=== PATIENT | female | born 1950 | race Caucasian/White ===

== ENCOUNTER 2018-12-24 08:11 | Emergency (ER) | payer BC, MEDICARE ==
[~2018-12-24] VITALS: Ht 165.1 cm; Wt 122.5 kg
--- NOTE | 2018-12-24 08:15 | NUR ---
L EYE/FOREHEAD RASH SINCE TUESDAY, - LOSS OF VISION. AA/OX4, BREATHING EVEN AND UNLABORED, NO SOB NOTED, DENIES BLURRED VISION. ATTACHED TO [facility] [employer], CHANGED INTO GOWN. NO DISTRESS NOTED.
[2018-12-24] MEDS ORDERED: ONDANSETRON HCL/PF 4 MG/2 ML VIAL IVP ONE (08:30)
[2018-12-24] MEDS ORDERED: ACYCLOVIR IV 1 GM in IV D5W 250 ML IV ONE (08:30)
[2018-12-24] MEDS ORDERED: MORPHINE SULFATE INJ 2 MG/ML DISP.SYRIN IV ONE (08:30)
[2018-12-24] MEDS ORDERED: PIPERACILLIN /TAZOBACTAM 3.375 G in IV D5W 50 ML IV ONE (08:30)
[2018-12-24] MEDS ORDERED: IV NS 0.9% 1,000 ML BAG IV ONE (08:30)
[2018-12-24] MEDS ORDERED: ONDANSETRON HCL/PF 4 MG/2 ML VIAL ONE (08:35)
[2018-12-24] MEDS ORDERED: MORPHINE SULFATE INJ 4 MG/ML DISP.SYRIN ONE (08:36)
[2018-12-24 08:51] LABS: BASOPHILS # (AUTO) 0.2 /CMM (0.0-0.2); BASOPHILS % (AUTO) 4.2 % (0.0-2.0); EOSINOPHILS % (AUTO) 3.9 % (0.0-6.0); HEMATOCRIT 46 % (33-45); HEMOGLOBIN 15.3 g/dL (11.5-14.8); LYMPHOCYTES # (AUTO) 0.6 /CMM (0.8-4.8); LYMPHOCYTES % (AUTO) 11.3 % (20.0-44.0); MEAN CORPUSCULAR HGB CONC 34 g/dl (31.0-36.0); MEAN CORPUSCULAR VOLUME 91 fL (82-100); MONOCYTES # (AUTO) 0.4 /CMM (0.1-1.30); MONOCYTES % (AUTO) 7.3 % (2.0-12.0); NEUTROPHILS # (AUTO) 4.1 /CMM (1.8-8.9); NEUTROPHILS % (AUTO) 73.3 % (43.0-81.0); PLATELET COUNT (AUTO) 179 /CMM (150-450); RED BLOOD CELL COUNT(AUTO) 5.01 MIL/uL (4.0-5.2); WHITE BLOOD COUNT (AUTO) 5.6 K/uL (4.3-11.0)
[2018-12-24 09:03] LABS: CALCIUM, SERUM 8.5 mg/dL (8.5-10.1); CREATININE 1.3 mg/dL (0.6-1.3); POTASSIUM 3.7 mmol/L (3.5-5.1)
--- NOTE | 2018-12-24 10:00 | NUR ---
VISUAL ACUITY DONE.
--- NOTE | 2018-12-24 10:19 | NUR ---
CALLED [facility]. SPOKE TO [facility]N. AWAITING CALL BACK.
--- NOTE | 2018-12-24 11:21 | NUR ---
CALLED DR OSORIO'S OFFICE AND LEFT A MESSAGE ASKING FOR A DR TO DR AYERS
--- NOTE | 2018-12-24 11:44 | NUR ---
CALLED [facility]. THEY ARE WAITING FOR [facility] TO CALL BACK TO SEE IF THERE IS AN AVAILABLE BED
--- NOTE | 2018-12-24 12:08 | NUR ---
CALLED [facility] AND WAS TOLD THAT THEY ARE AT [facility].
--- NOTE | 2018-12-24 12:42 | NUR ---
SPOKE TO LILI AT [facility] AND HE IS STILL WAITING FOR [facility] TO CALL BACK
--- NOTE | 2018-12-24 13:06 | NUR ---
IV removed. Catheter intact and site benign. Pressure and 4x4 applied to site. No bleeding noted. Patient discharged to home in stable condition. Written and verbal after care instructions given. Patient verbalizes understanding of instruction.
[2018-12-24 13:08] VITALS: BP 121/56
== END 2018-12-24 13:09 | disposition home or self-care (01) ==
LOC: ER 08:12
DX: B02.30 Zoster ocular disease, unspecified (principal); I10 Essential (primary) hypertension; E11.9 Type 2 diabetes mellitus without complications
CPT/HCPCS: 36415; 80048; 85025; 85730; 87040 ×2; 96365; 96367; 96375; 99283; J0133; J2270; J2405; J2543; J7030; J7060 ×2